=== PATIENT | male | born 1960 | race Caucasian/White ===

== ENCOUNTER → 2016-11-16 10:54 | Day surgery (SDC) | payer BC ==
[~2016-11-16 10:54] MED LIST: Buffered Lidocaine 1% SYRIN* 3 ML/SYR SYRINGE INTRADERM ONE; Ciprofloxacin 0.3% OPTH.SOL* 2.5 ML BTL ONE; Dexamethasone IV* 4 MG/ML 1 ML (4 MG) ONE; DiMENhydriNATE IV* 50 MG/ML VIAL IV PUSH PRN; EPHEDrine (Pressors)* 50 MG/ML VIAL ONE; EPINEPHrine AMP 1 MG/ML ONE; Famotidine IV* 10 MG/ML 2 ML (20 mg) ONE; Gelfoam Sponge SIZE 100* SPONGE ONE; KETAMINE HCL* 50 MG/ML 10 ML VIAL ONE; Lidocaine 2% EPI 1:200000 MPF* 20 ML VIAL ONE; Lidocaine 2% PF * 5 ML VIAL ONE; Metoclopramide TAB* 10 MG ONE; Metoclopramide TAB* 10 MG PO ONE; Midazolam* 1 MG/ML 5 ML VIAL (5 MG) ONE; Ondansetron INJ* 2 MG/ML VIAL IV PRN; Ondansetron INJ* 2 MG/ML VIAL ONE; Propofol* 10 MG/ML 20 ML BTL IV PUSH ONE; fentaNYL* 50 MCG/ML 2 ML VIAL (100 MCG VIAL) IV PRN; fentaNYL* 50 MCG/ML 2 ML VIAL (100 MCG VIAL) ONE; oxyCODONE/Acetamin 5/325 MG* TAB PO PRN
[2016-11-16 14:52] VITALS: BP 120/77
--- NOTE | 2016-11-16 21:57 | OP ---
DATE OF OPERATION: 11/16/16 - [facility] DATE OF : 60 SURGEON: Jack Wheeler M.D. ANESTHESIOLOGIST: Edgardo Zapata MD ANESTHESIA: General PRE-OP DIAGNOSIS: Right ear tympanic membrane perforation. POST-OP DIAGNOSIS: Right ear tympanic membrane perforation. OPERATIVE PROCEDURE: Tympanoplasty with cartilage graft. BRIEF HISTORY: This 55-year-old with moderate-sized tympanic membrane perforation with intermittent otorrhea, elected for surgical management. DESCRIPTION OF PROCEDURE: The patient was taken to the operating room, general anesthetic was given, patient intubated. Right ear was prepped and draped in usual fashion. A 2% lidocaine with epinephrine was infiltrated into the antihelical fold. A small incision was made into the helical fold, a piece of cartilage got harvested. We then turned our attention to the tympanic membrane. The tympanic membrane was elevated. Margins of perforation were removed and the epithelium peeled back, which provided the cartilage graft with an inset and the tympanic ring was reapproximated. The area was packed with Gelfilm and Gelfoam both medially and laterally. The wound was closed in a single layer. The patient was then awakened and sent to recovery room in stable condition. Instrument and sponge counts correct. Blood loss minimal. [id number]/[facility] #: [id number] [facility]
== END | disposition home or self-care (01) ==
LOC: OR 10:54
PROVIDERS: ATTEND Otolaryngology
DX: H72.01 Central perforation of tympanic membrane, right ear (principal); H90.11 Conductive hearing loss, unilateral, right ear, with unrestricted hearing on the contralateral side; I48.0 Paroxysmal atrial fibrillation
CPT/HCPCS: 36415; 85610; 85730; A9270-GY; J0171; J1100; J2250; J2405; J2704; J3010

== ENCOUNTER 2018-06-30 13:18 | Emergency (ER) | payer BC ==
[2018-06-30 13:55] VITALS: BP 122/82
--- NOTE | 2018-06-30 14:20 | UC ---
Respiratory Complaint HPI - HPI Summary HPI Summary: Fevers up to 103F and deep cough starting 5 days ago. Had fever as recently as this morning. Denies nasal congestion or ST. No known lung disease. - History of Current Complaint Chief Complaint: UCGeneralIllness Stated Complaint: FEVER Time Seen by Provider: 06/30/18 13:46 Hx Obtained From: Patient Onset/Duration: Gradual Onset, Lasting Days Timing: Constant Severity Initially: Moderate Severity Currently: Moderate Pain Intensity: 0 Character: Cough: Productive Associated Signs And Symptoms: Positive: Fever - Allergies/Home Medications Allergies/Adverse Reactions: Allergies Allergy/AdvReac Type Severity Reaction Status Date / Time clindamycin Allergy Hives Verified 06/30/18 13:55 methylprednisolone Allergy Tachycardia Verified 06/30/18 13:55 [From Medrol] PMH/Surg Hx/FS Hx/Imm Hx Cardiovascular History: Hypertension - Surgical History Surgical History: Yes Surgery Procedure, Year, and Place: 2012 BILATERAL PROXIMAL ROW CARPECTOMY, BILATERAL CARPEL TUNNEL RELEASE, 2009 SPINAL CORD STIMULATOR, 2009 STIMULATOR REMOVED FROM SPINAL CORD, 2007 BILATERAL PROXIMAL ROW CARPECTOMY. TUBES IN EARS IN DECEMBER 2014. 11/18/2016-GRAFTING IN EAR DRUM-DID NOT WORK - Family History Known Family History: Positive: Hypertension - Social History Alcohol Use: Daily Alcohol Amount: 2-3 bottles of wine a night Substance Use Type: None Smoking Status (MU): Never Smoked Tobacco Amount Used/How Often: smoked off and on for 20 years, 1/2 - 1ppd When Did the Patient Quit Smoking/Using Tobacco: 2011 - Immunization History Most Recent Influenza Vaccination: had fall 2013 Most Recent Tetanus Shot: has had in past Most Recent Pneumonia Vaccination: has never had Review of Systems All Other Systems Reviewed And Are Negative: Yes Constitutional: Positive: Fever Skin: Positive: Negative Eyes: Positive: Negative ENT: Positive: Negative Respiratory: Positive: Cough Cardiovascular: Positive: Negative Gastrointestinal: Positive: Negative Genitourinary: Positive: Negative Motor: Positive: Negative Neurovascular: Positive: Negative Musculoskeletal: Positive: Negative Neurological: Positive: Negative Psychological: Positive: Negative Is Patient Immunocompromised?: Yes Physical Exam Triage Information Reviewed: Yes Appearance: Well-Appearing, No Pain Distress, Thin Vital Signs: Initial Vital Signs Temp 99.2 F 06/30/18 13:51 Pulse 82 06/30/18 13:51 Resp 18 06/30/18 13:51 BP 122/82 06/30/18 13:51 Pulse Ox 97 06/30/18 13:51 Vital Signs Reviewed: Yes Eye Exam: Normal Eyes: Positive: Conjunctiva Clear ENT Exam: Normal ENT: Positive: Normal ENT inspection, Hearing grossly normal, Pharynx normal, TMs normal Neck exam: Normal Neck: Positive: Supple, Nontender, No Lymphadenopathy Respiratory: Positive: No respiratory distress, Crackles - RLL Cardiovascular Exam: Normal Cardiovascular: Positive: RRR, No Murmur Musculoskeletal Exam: Normal Neurological Exam: Normal Neurological: Positive: Alert Psychological Exam: Normal Skin Exam: Normal UC Diagnostic Evaluation - Laboratory O2 Sat by Pulse Oximetry: 97 Respiratory Course/Dx - Differential Dx/Diagnosis Provider Diagnosis: Bacterial pneumonia Discharge - Sign-Out/Discharge Documenting (check all that apply): Patient Departure All imaging exams completed and their final reports reviewed: No Studies - Discharge Plan Condition: Stable Disposition: HOME Prescriptions: Amoxicillin/Clavulanate TAB* [Augmentin TAB 875*] 875 mg PO BID #14 tab Patient Education Materials: Community Acquired Pneumonia (ED) Referrals: Meng White DO [Primary Care Provider] - 4 Days Additional Instructions: Drink plenty of fluids and rest. If you are not fever-free within 48 hours, or if you worsen, please come back here or get seen in the emergency department. - Billing Disposition and Condition Condition: STABLE Disposition: Home
== END 2018-06-30 14:12 | disposition home or self-care (01) ==
LOC: UCEAST 13:18
DX: J18.9 Pneumonia, unspecified organism (principal); Z88.1 Allergy status to other antibiotic agents; Z88.8 Allergy status to other drugs, medicaments and biological substances
CPT/HCPCS: 99212; G0463